=== PATIENT | female | born 1960 | race Caucasian/White ===

== ENCOUNTER 2023-03-29 00:26 | Inpatient (IN) ==
[2023-03-29] MEDS ORDERED: VANCOMYCIN HCL 2,750 MG in SODIUM CHLORIDE 0.9% 500 ML IV ONE (01:22)
[2023-03-29] MEDS ORDERED: VANCOMYCIN CONSULT ACTIVE PRN (01:22)
[2023-03-29] MEDS ORDERED: CEFEPIME 2,000 MG/20 ML VIAL IV STA (01:23)
--- NOTE | 2023-03-29 01:29 | Emergency Department Note ---
Impression & Plan Cellulitis ADMIT ED Provider Note HPI: The patient is a 62-year-old female who presents emergency department with a chief complaint of bilateral lower extremity edema with erythema. Patient states that this been ongoing for about the past month. Patient states she has been on Keflex and Bactrim without any significant improvement. On arrival here to the ED the patient is hemodynamically stable, she is in no acute distress. She does note that she had ultrasound imaging done recently that showed noted evidence of DVT bilaterally. ROS: - Per HPI Differential Diagnosis: Bilateral cellulitis, acute DVT, acute dermatitis, necrotizing soft tissue infection, peripheral edema, CHF exacerbation with peripheral edema, amongst other potential pathologies. *Outpatient medications and allergy history reviewed. *Pertinent external medical records reviewed. PE: General: Alert, morbidly obese HEENT: Normocephalic, trachea midline Eyes: Extraocular eye movement is intact, no scleral erythema Pulmonary: Clear to auscultation bilaterally, no wheezing Cardio: Regular rate and rhythm GI: Abdomen is soft to palpation : No suprapubic tenderness MSK: No evidence of trauma or malformation of the extremities, 3+ edema bilateral lower extremities Skin: Near circumferential bilateral blanchable erythema below the bilateral knees and above the bilateral ankles, there are several ulcerations that appear dry with surrounding erythema to the left lower extremity Neuro: Alert, no focal deficits Psychiatric: Cooperative monitor worker: (As interpreted by myself): - An order was placed for continuous cardiac monitoring - Patient was noted to be in sinus rhythm with a rate of 85 Interventions provided in ED: -IV vancomycin, IV cefepime Medical Decision Making: Patient presents the emergency department with some worsening rash to the bilateral lower extremities. This does appear consistent with possibly cellulitis. She has failed Keflex and Bactrim in the outpatient setting. IV was established and lab work ordered, patient was maintained on ekg monitor tech. Lab work shows no leukocytosis, there is a neutrophilic predominance, CMP does not show any critical findings, procalcitonin is low. Patient does not appear to be systemically ill, low suspicion for sepsis. There is no crepitus to palpation of the bilateral lower extremities or pain out of proportion to exam, low suspicion for necrotizing soft tissue infection. Overall the patient seems to have cellulitis that is not improving with oral antibiotics, she was therefore treated with IV vancomycin and IV cefepime. Patient stated preference for admission which I think is reasonable, [facility] hospitalist service was consulted for admission and the patient was excepted for admission by Dr. Child for further management Consultants: Hospitalist, Dr. Child Disposition discussion held by myself with: Patient and family members at the bedside Diagnosis: 1. Bilateral lower extremity cellulitis, acute Disposition: Admission Harmeet Coy DO Emergency Medicine Past Med/Surg History Social History Smoking Status: Never smoker Preferred Language: Faroese Feels Safe at Home: Yes Home Meds Home Medications Medication Instructions Recorded Confirmed allopurinol 300 mg tablet 300 mg PO DAILY 03/29/23 03/29/23 amlodipine 10 mg tablet 10 mg PO DAILY 03/29/23 03/29/23 furosemide 40 mg tablet 40 mg PO DAILY 03/29/23 03/29/23 lisinopril 20 mg tablet 20 mg PO DAILY 03/29/23 03/29/23 sulfamethoxazole 800 800 tab PO BID 03/29/23 03/29/23 mg-trimethoprim 160 mg tablet Results & Data (ED) Vital Signs Vital Signs - 24 hr 03/29/23 00:32 03/29/23 01:15 03/29/23 01:30 Temperature 36.9 C Temperature Source Temporal Artery Scan Pulse Rate 87 78 79 Respiratory Rate 16 20 Respiratory Effort / Characteristics Non-Labored Spontaneous Respiratory Depth Normal Blood Pressure 167/83 H 153/72 H Blood Pressure Mean 111 99 Pulse Oximetry 98 97 Oxygen Delivery Method Room Air Sepsis Recent Fever Within 48 Hours No Sepsis New/Unexplained Change in Mental Status N/A Sepsis Action Taken by Nursing No Action Required 03/29/23 02:30 Temperature Temperature Source Pulse Rate 80 Respiratory Rate 22 Respiratory Effort / Characteristics Respiratory Depth Blood Pressure 145/74 H Blood Pressure Mean 97 Pulse Oximetry 94 Oxygen Delivery Method Sepsis Recent Fever Within 48 Hours Sepsis New/Unexplained Change in Mental Status Sepsis Action Taken by Nursing Laboratory Data 03/29/23 01:15 03/29/23 01:15 Lab Results 03/29/23 03/29/23 03/29/23 Range/Units 01:15 01:15 01:15 WBC 10.51 (4.8-10.8) K/ul RBC 4.34 (4.20-5.40) M/uL Hgb 13.1 (12.0-16.0) g/dl Hct 39.2 (37.0-47.0) % MCV 90.3 (80.0-100.0) fL MCH 30.2 (25.0-34.0) pg MCHC 33.4 (32.0-36.0) g/dL RDW Std Deviation 47.6 H (36.4-46.3) fL RDW Coeff of Oswald 14.5 (11.5-14.5) % Plt Count 266 (130-400) K/uL MPV 11.7 (9.4-12.4) fL Immature Gran % (Auto) 1.0 % Neut % (Auto) 62.2 % Lymph % (Auto) 20.0 % [place] % (Auto) 9.2 % Eos % (Auto) 6.9 % Baso % (Auto) 0.7 % Neut # (Auto) 6.54 H (1.40-6.50) K/uL Lymph # (Auto) 2.10 (1.20-3.40) K/uL [place] # (Auto) 0.97 H (0.11-0.59) K/uL Eos # (Auto) 0.73 H (0.00-0.50) K/uL Baso # (Auto) 0.07 (0.00-0.20) K/uL Immature Gran # (Auto) 0.10 (0.01-0.20) K/uL Sodium 137 (136-145) mmol/L Potassium 3.6 (3.5-5.1) mmol/L Chloride 105 (98-107) mmol/L Carbon Dioxide 24 (21-32) mmol/L Anion Gap 8 (3-11) BUN 37 H (6-23) mg/dl Creatinine 1.39 H (0.6-1.2) mg/dl Est Cr Clr Drug Dosing 62.8 ml/min Est GFR ( Amer) 47.0 ml/min Est GFR (Non-Af Amer) 40.5 ml/min BUN/Creatinine Ratio 26.6 H (10-20) Glucose 107 H (70-99(Fasting)) mg/dl Calcium 9.5 (8.6-10.3) mg/dl Total Bilirubin 0.3 (0.2-1.0) mg/dl AST 19 (13-39) U/L ALT 22 (7-52) U/L Alkaline Phosphatase 89 (34-104) U/L Total Protein 7.3 (6.0-8.3) gm/dl Albumin 4.1 (3.4-5.0) gm/dl Globulin 3.2 (2.5-4.0) gm/dl Albumin/Globulin Ratio 1.3 (0.9-2) Procalcitonin 0.05 (0-0.5) ng/ml Administered Medications Discontinued Medications Vancomycin HCl 2,750 mg/ (Sodium Chloride) 555 mls @ 200 mls/hr IV NOW ONE Stop: 03/29/23 04:09 Last Admin: 03/29/23 02:16 Dose: 200 mls/hr Documented By: DANIELLE Cefepime HCl (Maxipime) 2,000 mg in 20 mls @ 5 mls/min IV NOW STA; Protocol Stop: 03/29/23 01:26 Last Admin: 03/29/23 02:10 Dose: 5 mls/min Documented By: DANIELLE Discharge Plan Visit Data Chief Complaint: Allergic Reaction Stated Complaint: ALLERGIC REACTION IN LEGS-RASH,ITCHY,REDNESS ED Provider: Harmeet Coy Discharge Problem: Cellulitis Forms Stand Alone Forms: My [facility] Prescriptions Prescriptions: No Action sulfamethoxazole-trimethoprim 800-160 mg tablet 800 tab PO BID furosemide 40 mg tablet 40 mg PO DAILY lisinopril 20 mg tablet 20 mg PO DAILY allopurinol 300 mg tablet 300 mg PO DAILY amlodipine 10 mg tablet 10 mg PO DAILY Referrals Referrals: Ange Vee M.D. [Primary Care Provider] -
[2023-03-29 01:36] LABS: Basophils # (auto) 0.07 K/uL (0.00-0.20); Basophils % (auto) 0.7 %; Eosinophils # (auto) 0.73 K/uL (0.00-0.50); Eosinophils % (auto) 6.9 %; Hematocrit (blood only) 39.2 % (37.0-47.0); Hemoglobin 13.1 g/dl (12.0-16.0); Mean Corpuscular Hemoglobin 30.2 pg (25.0-34.0); Mean Corpuscular Hgb Conc 33.4 g/dL (32.0-36.0); Mean Corpuscular Volume 90.3 fL (80.0-100.0); Mean Platelet Volume 11.7 fL (9.4-12.4); Monocytes # (auto) 0.97 K/uL (0.11-0.59); Monocytes % (auto) 9.2 %; Neutrophils # (auto) 6.54 K/uL (1.40-6.50); Neutrophils % (auto) 62.2 %; Platelet Count 266 K/uL (130-400); RDW Coefficient of Variation 14.5 % (11.5-14.5); RDW Standard Deviation 47.6 fL (36.4-46.3); Red Blood Count 4.34 M/uL (4.20-5.40); White Blood Count 10.51 K/ul (4.8-10.8)
[2023-03-29 01:48] LABS: Albumin Globulin Ratio 1.3 (0.9-2); Albumin Level 4.1 gm/dl (3.4-5.0); BUN Creatinine Ratio 26.6 (10-20); Bilirubin,Total 0.3 mg/dl (0.2-1.0); Calcium 9.5 mg/dl (8.6-10.3); Creatinine Clr Calc Pharmacy 62.8 ml/min; Est GFR (Non-African American) 40.5 ml/min; Globulin 3.2 gm/dl (2.5-4.0); Potassium 3.6 mmol/L (3.5-5.1); Total Protein 7.3 gm/dl (6.0-8.3)
--- NOTE | 2023-03-29 03:40 | History & Physical Report ---
Date of Service March 29, 2023 Assessment & Plan (1) Bilateral edema of lower extremity: Plan: 62 year old female w/ PmHx HTN and gout admitted for worsening edema and cellulitis of the lower extremities. B/l edema and erythema of lower extremities: -Doppler from 03/20 negative for any clots. -Ongoing swelling and rash at L lower extremity for a few weeks now. -Has been on Keflex, Bactrim, topical mupirocin with worsening on Bactrim. -Patient hemodynamically stable, no elevated WBC count however worsening of the rash when compared to pictures on patient's phone. -Origin of worsening edema unknown, differential includes cellulitis, venous stasis, new onset heart failure. -Will treat cellulitis for now, continue vancomycin for MRSA coverage. -Given 1 dose of Cefepime in the ED however no history of diabetes, can treat with 3rd gen cephalosporin - started on CTX 2g daily. -Will put on Lasix 40mg IV daily to help with the swelling, continue to monitor kidney function. DIAZ stockings ordered. -Trend daily CBC, BMP, will order CRP. -Admit to med/surg HTN: -Continue home amlodipine and lisinopril. Hx of Gout: -Continue home allopurinol. F/E/N/GI: Regular. DVT Prophylaxis: Patient able to ambulate well, will defer chemoprophylaxis for now. Code status: Full code. Dispo: Med/surg (2) Erythema of lower extremity: (3) Hypertension: (4) History of gout: History of Present Illness Chief Complaint: B/l leg rash Primary Care Provider: Ange James is a 62 year old female w/ PmHx of HTN and gout coming in for worsening leg swelling and rash on the bilateral legs. Patient was previously seen on 03/20 f or concern for lower extremity edema and cellulitis. She had lower extremity edema since December and had developed left leg rash that was blistering at times. She saw her PCP on 03/17 who started her on Keflex 500mg and switched her HCTZ- lisinopril to lisinopril and Lasix 40mg daily. She came to the ED on the of this month at the instruction of her PCP for concern for DVT from an elevated D-Dimer. Doppler at the time was negative. She was given a dose of Ceftriaxone in the ED at that time and told to continue her Keflex and follow up with PCP. Her PCP switched her to Bactrim and topical mupirocin. She states she had a bad reaction to the bactrim with worsening of the rash and spread to the other leg. Before then she was improving and also noted improvement in swelling with the Lasix. After taking the first dose of Bactrim her rash extended to the other leg and got worse with wrapping around the leg. There was concern for worsening and so the patient had decided to come to the ED for further evaluation. There is no pain at the legs, the area just feels a little tight and itches at times. Per her sister in the room she had felt a little cold at times which may have been chills, however denies fevers, cough, shortness of breath, headache, pain at the legs, dysuria. In the ED CBC was unremarkable, CMP showed mild raise in creatinine to 1.39, procal negative. She was given a dose of Cefepime and Vancomycin. Allergies Allergy/AdvReac Type Severity Reaction Status Date / Time No Known Allergies Allergy Unverified 03/29/23 08:12 Home Medications Medication Instructions Recorded Confirmed Type allopurinol 300 mg tablet 300 mg PO DAILY 03/29/23 03/29/23 History amlodipine 10 mg tablet 10 mg PO DAILY 03/29/23 03/29/23 History lisinopril 20 mg tablet 20 mg PO DAILY 03/29/23 03/29/23 History Past Med/Surg History Social History Smoking Status: Never smoker Hx Alcohol Use: No Hx Substance Use: No Preferred Language: Danish Communication Ability: Effective Die Cleaner Required: No Beliefs That Will Affect Care: None Current Living Situation: Other Current Living Situation Comment: [facility] Feels Safe at Home: Yes Assistive Devices: None Review of Systems Review of Systems: As per HPI. Physical Exam Constitutional: WD/WN, vitals as above Eyes: PERRL, conjunctivae normal, anicteric sclerae Respiratory: normal respiratory effort, lungs clear to auscultation Cardiovascular: Rate/Rhythm: regular rate and regular rhythm Heart Sounds: normal S1 and normal S2 Marked edema and swelling to the bilateral lower extremities to the knees. Peripheral pulses 2+ at the bilateral lower extremities. Gastrointestinal (Abdomen): normal bowel sounds, soft, nontender, no hepatosplenomegaly Skin: Erythematous macular rash at that anterior bilateral shins extending to the lateral and medial aspects of the leg. Some scabs on the L leg, no active discharge. Neurologic: Sensation in tact at the bilateral lower extremities. Psychiatric: A+Ox3, euthymic affect Results & Data Results & Data Vital Signs (Past 12 Hours) Vital Signs Temp Pulse Resp BP Pulse Ox O2 Del Method 03/29/23 02:30 80 22 145/74 H 94 03/29/23 01:30 79 20 153/72 H 97 03/29/23 01:15 78 03/29/23 00:32 36.9 C 87 16 167/83 H 98 Room Air Supervising Physician Co-Signing Physician Notes Attending addendum: I have physically seen this patient, have supervised the medical residents activities, and agree with the H&P unless as otherwise noted. Assessment and Plan: Bilateral lower extremity edema/left lower extremity cellulitis- Failure of outpatient treatment with Keflex, Bactrim and topical mupirocin Vancomycin IV as begun in the ED Given cefepime IV in ED, placed on ceftriaxone 2 g IV daily Lasix 40 mg IV now and every morning Consult wound care if needed Hypertension- Continue amlodipine and lisinopril with hold parameters Gout- Continue allopurinol Remaining orders and notations as noted Resident Activity Tracking Resident Involvement: Resident Care Provided Care Provided: Adult Hospital Medicine
[2023-03-29] MEDS ORDERED: POLYETHYLENE (MIRALAX) 17 GM PACK PO PRN (06:42)
[2023-03-29] MEDS ORDERED: ACETAMINOPHEN 325 MG TAB PO PRN (06:42)
[2023-03-29] MEDS ORDERED: ONDANSETRON INJ 2 MG/ML 2 ML VIAL IV PRN (06:42)
[2023-03-29] MEDS ORDERED: Patient's ALLERGY Info needs ENTERED STA (06:46)
--- NOTE | 2023-03-29 07:42 | Hospitalist Progress Note ---
Date of Service March 29, 2023 Assessment & Plan (1) Bilateral edema of lower extremity: Plan: 62 year old female w/ PmHx HTN and gout admitted for worsening edema and cellulitis of the lower extremities. B/l edema and erythema of lower extremities: -Doppler from 03/20 negative for any clots. -Ongoing swelling and rash at L lower extremity for a few weeks now. -Has been on Keflex, Bactrim, topical mupirocin with worsening on Bactrim. -Origin of worsening edema unknown, differential includes cellulitis, venous stasis, new onset heart failure. -Will treat cellulitis for now, continue vancomycin for MRSA coverage. -Given 1 dose of Cefepime in the ED however no history of diabetes, can treat with 3rd gen cephalosporin - started on CTX 2g daily. -Will put on Lasix 40mg IV daily to help with the swelling, continue to monitor kidney function. DIAZ stockings ordered. -Trend daily CBC, BMP, will order CRP. -Admit to med/surg HTN: -Continue home amlodipine and lisinopril. Hx of Gout: -Continue home allopurinol. F/E/N/GI: Regular. DVT Prophylaxis: Patient able to ambulate well, will defer chemoprophylaxis for now. Code status: Full code. Dispo: Med/surg (2) Erythema of lower extremity: (3) Hypertension: (4) History of gout: Admission and Anticipated Discharge Date Admission Date: March 29, 2023 Stuart James is a 62 year old female with past medical history of HTN and gout coming in for worsening leg swelling and rash on the bilateral legs. Patient was previously seen on 03/20 for concern for lower extremity edema and cellulitis. She had lower extremity edema since December and had developed left leg rash that was blistering at times. She saw her PCP on 03/17 who started her on Keflex 500mg and switched her HCTZ-lisinopril to lisinopril and Lasix 40mg daily. She came to the ED on the of this month at the instruction of her PCP for concern for DVT from an elevated D-Dimer. Doppler at the time was negative. She was given a dose of Ceftriaxone in the ED at that time and told to continue her Keflex and follow up with PCP. Her PCP switched her to Bactrim and topical mupirocin. She states she had a bad reaction to the bactrim with worsening of the rash and spread to the other leg. Before then she was improving and also noted improvement in swelling with the Lasix. After taking the first dose of Bactrim her rash extended to the other leg and got worse with wrapping around the leg. There was concern for worsening and so the patient had decided to come to the ED for further evaluation. There is no pain at the legs, the area just feels a little tight and itches at times. Per her sister in the room she had felt a little cold at times which may have been chills, however denies fevers, cough, shortness of breath, headache, pain at the legs, dysuria. In the ED CBC was unremarkable, CMP showed mild raise in creatinine to 1.39, procal negative. She was given a dose of Cefepime and Vancomycin. Upon admission, the Cefepime was discontinued and switched to Ceftriaxone since patient was ruled out from having diabetes. Blood cultures were collected 2/3 a.m. and we are currently awaiting results. A MRSA swab was done, which was negative.The bactrim was discontinued due to potential adverse reaction that the patient was having. When visiting the patient this morning, the patient noted to feeling overall well. Her lower extremities do feel itchy, but that feeling comes and goes. She feels that the Lasix has helped improve the edema since her lower extremities, while swollen, do not feel as "hard" as they used to prior to the Lasix. She notes her legs to look about the same, but does feel that they are slightly less swollen. Denies any pain, fever, fatigue, nausea, and vomiting. Her lower extremities did feel warm on exam, but it may be due to the Results & Data Results & Data Vital Signs (Past 12 Hours) Vital Signs Temp Pulse Pulse Pulse Resp BP BP 03/29/23 06:44 36.5 C 84 18 114/75 03/29/23 06:04 75 18 107/63 03/29/23 05:50 77 22 03/29/23 05:40 75 20 03/29/23 05:31 134/113 H 03/29/23 05:31 83 22 03/29/23 05:30 82 17 03/29/23 05:20 87 19 03/29/23 05:10 75 20 03/29/23 05:00 75 21 03/29/23 05:00 92/58 L 03/29/23 04:50 82 17 03/29/23 04:40 81 20 03/29/23 04:30 76 22 03/29/23 04:30 123/60 03/29/23 04:20 79 16 03/29/23 04:10 92 H 18 03/29/23 04:00 80 21 03/29/23 04:00 108/62 03/29/23 03:50 81 20 03/29/23 03:40 81 16 03/29/23 03:30 80 21 03/29/23 03:30 116/57 L 03/29/23 03:20 84 17 03/29/23 03:10 85 23 03/29/23 03:00 80 21 03/29/23 03:00 125/70 03/29/23 02:50 77 21 03/29/23 05:14 80 03/29/23 04:30 91 H 18 161/96 H 03/29/23 02:30 80 22 145/74 H 03/29/23 01:30 79 20 153/72 H 03/29/23 01:15 78 03/29/23 00:32 36.9 C 87 16 167/83 H Pulse Ox O2 Del Method 03/29/23 06:44 98 Room Air 03/29/23 06:04 94 Room Air 03/29/23 05:50 92 03/29/23 05:40 96 03/29/23 05:31 03/29/23 05:31 97 03/29/23 05:30 96 03/29/23 05:20 99 03/29/23 05:10 94 03/29/23 05:00 91 03/29/23 05:00 03/29/23 04:50 95 03/29/23 04:40 94 03/29/23 04:30 97 03/29/23 04:30 03/29/23 04:20 97 03/29/23 04:10 03/29/23 04:00 95 03/29/23 04:00 03/29/23 03:50 95 03/29/23 03:40 94 03/29/23 03:30 96 03/29/23 03:30 03/29/23 03:20 96 03/29/23 03:10 98 03/29/23 03:00 95 03/29/23 03:00 03/29/23 02:50 97 03/29/23 05:14 03/29/23 04:30 94 Room Air 03/29/23 02:30 94 03/29/23 01:30 97 03/29/23 01:15 03/29/23 00:32 98 Room Air Resident Activity Tracking Resident Involvement: Resident Care Provided Care Provided: Adult Hospital Medicine
[2023-03-29] MEDS ORDERED: amLODIPine BESYLATE 5 MG TAB PO SCH (09:00)
[2023-03-29] MEDS ORDERED: lisinopril 20 MG TAB PO SCH (09:00)
[2023-03-29] MEDS ORDERED: allopurinoL 300 MG TAB PO SCH (09:00)
[2023-03-29] MEDS ORDERED: FUROSEMIDE 40 MG/4 ML VIAL IV SCH (09:00)
[2023-03-29] MEDS ORDERED: ADVANCED PROBIOTIC 1250 MG CAPSULE PO SCH (09:00)
[2023-03-29] MEDS ORDERED: cefTRIAXone SODIUM 2,000 MG in DEXTROSE 5% 50 ML IV SCH (10:00)
[2023-03-29] MEDS ORDERED: diphenhydrAMINE Capsule 25 MG CAP PO ONE (16:08)
--- NOTE | 2023-03-29 17:43 | Discharge Summary ---
Date of Service March 29, 2023 Admission HPI Per Admitting Provider Erika is a 62 year old female w/ PmHx of HTN and gout coming in for worsening leg swelling and rash on the bilateral legs. Patient was previously seen on 03/20 for concern for lower extremity edema and cellulitis. She had lower extremity edema since December and had developed left leg rash that was blistering at times. She saw her PCP on 03/17 who started her on Keflex 500mg and switched her HCTZ- lisinopril to lisinopril and Lasix 40mg daily. She came to the ED on the of this month at the instruction of her PCP for concern for DVT from an elevated D- Dimer. Doppler at the time was negative. She was given a dose of Ceftriaxone in the ED at that time and told to continue her Keflex and follow up with PCP. Her PCP switched her to Bactrim and topical mupirocin. She states she had a bad reaction to the bactrim with worsening of the rash and spread to the other leg. Before then she was improving and also noted improvement in swelling with the Lasix. After taking the first dose of Bactrim her rash extended to the other leg and got worse with wrapping around the leg. There was concern for worsening and so the patient had decided to come to the ED for further evaluation. There is no pain at the legs, the area just feels a little tight and itches at times. Per her sister in the room she had felt a little cold at times which may have been chills, however denies fevers, cough, shortness of breath, headache, pain at the legs, dysuria. In the ED CBC was unremarkable, CMP showed mild raise in creatinine to 1.39, procal negative. She was given a dose of Cefepime and Vancomycin. Principal Diagnosis venous stasis Discharge Exam General she is awake and alert pleasant no distress. HEENT normocephalic atrau matic mucous membranes moist. Breathing unlabored no accessory muscle use good effort. Bilateral lower extremities show blotchy maculopapular coalescing areas across her anterior shins, nothing consistent with true erythema, lots of venous stasis changes, few superficial ulcerations on dry patches that are scaling somewhat. No tenderness no exudate no fluctuance no warmth Discharge Data Allergies Allergy/AdvReac Type Severity Reaction Status Date / Time No Known Allergies Allergy Unverified 03/29/23 08:12 Consultations 03/29/23 02:46 ED Decision to Admit Stat Hospital Course (1) Venous stasis: Her skin changes seem to be much more consistent with venous stasis, and possibly some topical reactions to her bacitracin, and/or other topicals she was usingand I really doubt any cellulitis was at play at all. Certainly where the she examines today does not at all appear consistent with infection, and her lack of any constitutional symptomsno fevers, chills, sweats, body aches; as well as the fact that her legs did not really seem to ever be exquisitely tender (more stinging and itchy), and the fact that she has no leukocytosis and a normal procalcitonin are all quite reassuring. In review of the pictures she was taking, it is possible that she had some very mild cellulitis a week ago surrounding a few of the lesions, but nothing now. I suspect she was failing antibiotics because the problem was really more venous stasis changes and some local skin reactions to topical treatments more than an infection-- therefore stopping antibiotics at this time as it relates to her venous stasisexplained extensively, outlined the pathophysiology as well as the management - discussed extreme limitations of diuretics, and would recommend that she go back to her baseline antihypertensive regimen of lisinopril/hydrochlorothiazide rather than the diuretic regimen with the Lasixshould have a repeat basic metabolic panel next week given that her creatinine bumped slightly - outlined the critical importance of movement and discussed practical ways to increase muscle contraction - when she is restingelevation and compression - at work, compression if possible, and muscle contraction/fidgeting/calf raises/anything to have more muscle contraction to clear more venous fluid - sodium restriction to less than 2000 mg a day safe/stable for home, outpatient follow-up with PCP next week, off antibiotics, BMP next week Total Time Total Time Spent Total Time Spent (In Minutes): >30 Discharge Plan Discharge Items Patient Disposition: Home - Self-Care Reason For Visit: B/L LOWER EXTREMITIES EDEMA AND RASH WORSENING Discharge Diagnosis: Venous Stasis Activity: Resume your previous activity Non-emergency contact: Primary Care Provider Call non-emergency contact if: you have any medication questions and your symptoms worsen Follow-up/Referrals: Ange Vee M.D. [Primary Care Provider] - Diet: Heart Healthy and Low Sodium (2gm) Fluids: 1800ml (7 cups) Addtl Attending Provider Instructions: You were here in the hospital due to symptoms worsening leg swelling and rash on the bilateral legs. Patient was previously seen on 03/20 for concern for lower extremity edema and cellulitis. You were treated with IV antibiotics in the ER. You were found to have venous stasis. As explained today, this occurs when blood pools in the lower legs and put pressure on the skin. -We recommended start a low sodium diet -We recommended start doing exercise as tolerated which will help decreasing the swelling of the legs -Your going to hold Lasix -You should follow up with your PCP within a week. Pending Studies at Discharge: No Stand-Alone Forms: My [facility], Smoking Cessation Medications and DC Order Prescriptions: Continued lisinopril 20 mg tablet 20 mg PO DAILY allopurinol 300 mg tablet 300 mg PO DAILY amlodipine 10 mg tablet 10 mg PO DAILY Discontinued sulfamethoxazole-trimethoprim 800-160 mg tablet 800 tab PO BID furosemide 40 mg tablet 40 mg PO DAILY Admission Data Admit Date/Time: 03/29/23 03:48 Attending Provider: Marcel Snyder Admit Provider: Jarrett Fitzgerald Primary Care Provider: Ange Vee Other Providers: Elvin Child Coding Level of Care Code 72359 INP/OBS DISCH >30 MIN Diagnoses Venous stasis I87.8
--- NOTE | 2023-03-29 20:13 | Billing Data ---
Date of Service March 29, 2023 Coding Level of Care Code 73104 INT INP/OBS CARE
[2023-03-30] MEDS ORDERED: FUROSEMIDE 40 MG/4 ML VIAL IV SCH (09:00)
== END 2023-03-29 18:47 | disposition home or self-care (01) | DRG 303 ==
LOC: ED 00:26 → SUATTDRO 03:48 → 3N 03:48
DX: L98.8 Other specified disorders of the skin and subcutaneous tissue; M10.9 Gout, unspecified; I87.8 Other specified disorders of veins; Z79.899 Other long term (current) drug therapy; I10 Essential (primary) hypertension; T49.0X5A Adverse effect of local antifungal, anti-infective and anti-inflammatory drugs, initial encounter